=== PATIENT | female | born 1995 | race Caucasian/White ===

== ENCOUNTER 2017-09-18 13:26 | Emergency (ER) | payer OTHER ==
[~2017-09-18] VITALS: Ht 160 cm; Wt 55.8 kg
== END 2017-09-18 19:09 | disposition home or self-care (01) ==
LOC: ER 13:26
DX: K29.70 Gastritis, unspecified, without bleeding (principal); R19.7 Diarrhea, unspecified

== ENCOUNTER → 2018-11-22 | Emergency (ER) | payer OTHER ==
[~2018-11-22] VITALS: Ht 157.5 cm; Wt 52.2 kg
== END | disposition home or self-care (01) ==
LOC: ER 11:04
DX: N83.292 Other ovarian cyst, left side (principal); R10.2 Pelvic and perineal pain